=== PATIENT | female | born 1965 | race African-American/Black ===

== ENCOUNTER 2017-07-22 16:52 | Emergency (ER) | payer OTHER ==
[~2017-07-22] VITALS: Ht 175.3 cm; Wt 72.5 kg
[2017-07-22 16:57] VITALS: Ht 175.3 cm; Wt 72.5 kg
[2017-07-22] MEDS ORDERED: IOHEXOL 100 ML ONE (20:57)
[2017-07-22] MEDS ORDERED: SOD CHLORIDE 0.9% 100 ML ONE (20:57)
[2017-07-22] MEDS ORDERED: LORAZEPAM 2 MG INJ IV ONE (21:00)
[2017-07-22 21:39] LABS: BASOPHILS % 0.4 % (0.0-2.0); EOSINOPHILS # 0.2 10^3/ul (0.0-0.5); EOSINOPHILS % 2.5 % (0.0-7.0); HEMATOCRIT 34.4 % (37.0-47.0); HEMOGLOBIN 11.3 g/dl (12.0-16.0); LYMPHOCYTES # 3.6 10^3/ul (0.8-2.9); LYMPHOCYTES % 47.9 % (15.0-51.0); MEAN CORPUSCULAR HEMOGLOBIN 28.8 pg (29.0-33.0); MEAN CORPUSCULAR HGB CONC 32.8 g/dl (32.0-37.0); MEAN CORPUSCULAR VOLUME 87.8 fl (82.0-101.0); MEAN PLATELET VOLUME 9.9 fl (7.4-10.4); MONOCYTE # 0.5 10^3/ul (0.3-0.9); MONOCYTES % 6.7 % (0.0-11.0); NEUTROPHILS % 42.4 % (39.0-77.0); PLATELET COUNT 380 10^3/UL (140-415); RED BLOOD COUNT 3.92 10^6/ul (4.20-5.40); WHITE BLOOD COUNT 7.6 10^3/ul (4.8-10.8)
[2017-07-22 21:57] LABS: INR 1.03; PARTIAL THROMBOPLASTIN TIME 28.1 Sec (25.0-35.0); PROTIME 13.5 Sec (12.2-14.2); PT RATIO 1.1
[2017-07-22 21:59] LABS: ALANINE AMINOTRANSFERASE 33 IU/L (13-69); ALBUMIN 4.1 g/dl (3.3-4.9); ALBUMIN/GLOBULIN RATIO 1.17; ALKALINE PHOSPHATASE 56 IU/L (42-121); ANION GAP 14 (8-16); ASPARTATE AMINO TRANSFERASE 24 IU/L (15-46); BLOOD UREA NITROGEN 9 mg/dl (7-20); CALCIUM 9.1 mg/dl (8.4-10.2); CARBON DIOXIDE 27 mmol/L (21-31); CHLORIDE 105 mmol/L (97-110); CREATININE 0.74 mg/dl (0.44-1.00); GLUCOSE 102 mg/dl (70-220); POTASSIUM 3.9 mmol/L (3.5-5.1); SODIUM 142 mmol/L (135-144); TOTAL PROTEIN 7.6 g/dl (6.1-8.1)
[2017-07-22 22:12] LABS: TROPONIN-I < 0.012 ng/ml (0.00-0.12)
--- NOTE | 2017-07-22 23:17 | RADRPT ---
PROCEDURE: CT angiogram of the chest with contrast. CLINICAL INDICATION: Chest pain. TECHNIQUE: CT angiogram of the chest was obtained using a multi-detector high-resolution CT. Con tiguous axial images were obtained during the dynamic injection of 90 cc of Omnipaque 350 intravenou s contrast. Coronal and sagittal reformatted images were obtained. 3-D reformatted images were als o obtained. Images were reviewed on a PACS workstation. One or more of the following dose reduction techniques were used: - Automated exposure control. - Adjustment of the mA and/or kV according to patient size. - Use of iterative reconstruction technique. Exam CTD/vol = 7.00 mGy. Total exam DLP = 275.19 mGy-cm. COMPARISON: None. FINDINGS: The main pulmonary artery followed to the segmental divisions are well opacified. There is no filli ng defect or evidence of pulmonary embolism. The heart is normal in size. There is no pericardial thickening or effusion. The aorta is of normal course and caliber without evidence of aneurysm or d issection. Bilateral breast implants are present. The visualized thyroid is unremarkable. There are no enlarg ed axillary lymph nodes. There are no enlarged mediastinal or hilar lymph nodes by CT criteria. Th ere is no parenchymal nodule or consolidation. There is no pleural effusion. The central tracheobr onchial tree is within normal limits. Limited evaluation of the upper abdomen is unremarkable. IMPRESSION: No evidence of pulmonary embolism or aortic dissection. .Yohannes Hu MD, Date Time Electronically viewed and signed by .Yohannes Hu MD, MD on 07/22/2017 23:17 .T/
[2017-07-23 00:47] VITALS: BP 110/79; PULSE 88; RESP 20; TEMP 98
--- NOTE | 2017-07-24 17:39 | ERD ---
ER Documentation Chief Complaint Date/Time DATE: 07/22/17 TIME: 20:28 Chief Complaint HEART PALPATIONS, REPORTS TAKING TAMOXIFEN POSS CAUSE HPI 52 year old female with a history of breast CA s/p chemo and mastectomy in remission with recent history of STEPHEN 10 days ago presenting with palpitations and difficulty breathing. She has had these symptoms since yesterday intermittently. She states it started after she took her ativan, norco, and tamoxifen all together. She has been on Tamoxifen for 2 years and has never mcduffie da reaction like this, but think the medication may be the cause. She denies any specific chest pain or leg pain. She feels very anxious as well. No recent cough, fevers, chills. No history of venous thrombosis. I spoke with her [facility], who states the hysterectomy was done for fibroids, not cancer and the removed tissue pathology was benign. ROS All systems reviewed and are negative except as per history of present illness. PMhx/Soc History of Surgery: Yes (HYSTERECTOMY; [facility] MASTECTOMY) Anesthesia Reaction: No Hx Neurological Disorder: Yes Hx Respiratory Disorders: Yes (SOB SINCE SX.) Hx Cardiac Disorders: No Hx Psychiatric Problems: Yes (CURRENTLY ANXIOUS) Hx Miscellaneous Medical Probl: Yes (HX OF BREAST CA.) Hx Alcohol Use: No Hx Substance Use: No Hx Tobacco Use: No Smoking Status: Never smoker FmHx Family History: No coronary disease, No diabetes Physical Exam Vitals Vital Signs Date Time Temp Pulse Resp B/P Pulse Ox O2 Delivery O2 Flow Rate FiO2 07/23/17 00:47 98.0 88 20 110/79 97 Room Air 07/22/17 23:00 98.3 98 20 113/88 97 Room Air 07/22/17 21:23 Nasal Cannula 2 07/22/17 21:21 98.6 100 20 106/79 95 Room Air 07/22/17 16:57 98.7 102 20 132/64 99 Physical Exam Const: appears anxious, speaking in short sentences, non toxic Head: Atraumatic Eyes: Normal Conjunctiva ENT: Normal External Ears, Nose and Mouth. Neck: Full range of motion..~ No meningismus. Resp: Clear to auscultation bilaterally Cardio: Regular rate and rhythm, no murmurs. 2+ distal pulses Abd: Soft, non tender, non distended. Normal bowel sounds Skin: No petechiae or rashes Back: No midline or flank tenderness Ext: No cyanosis, or edema. No calf swelling or tenderness, negative homans sign Neur: Awake and alert Psych: Normal Mood and Affect Result Diagram: 07/22/17202007/22/172020 Results 24 hrs Laboratory Tests Test 07/22/17 20:21 White Blood Count 7.610^3/ul Red Blood Count 3.9210^6/ul Hemoglobin 11.3g/dl Hematocrit 34.4% Mean Corpuscular Volume 87.8fl Mean Corpuscular Hemoglobin 28.8pg Mean Corpuscular Hemoglobin Concent 32.8g/dl Red Cell Distribution Width 14.0% Platelet Count 99750^3/UL Mean Platelet Volume 9.9fl Neutrophils % 42.4% Lymphocytes % 47.9% Monocytes % 6.7% Eosinophils % 2.5% Basophils % 0.4% Nucleated Red Blood Cells % 0.0/100WBC Neutrophils # (Manual) 3.210^3/ul Lymphocytes # 3.610^3/ul Monocytes # 0.510^3/ul Eosinophils # 0.210^3/ul Basophils # 0.010^3/ul Nucleated Red Blood Cells # 0.010^3/ul Prothrombin Time 13.5Sec Prothrombin Time Ratio 1.1 INR International Normalized Ratio 1.03 Activated Partial Thromboplast Time 28.1Sec Sodium Level 142mmol/L Potassium Level 3.9mmol/L Chloride Level 105mmol/L Carbon Dioxide Level 27mmol/L Anion Gap 14 Blood Urea Nitrogen 9mg/dl Creatinine 0.74mg/dl Glucose Level 102mg/dl Calcium Level 9.1mg/dl Total Bilirubin 0.0mg/dl Direct Bilirubin 0.00mg/dl Indirect Bilirubin 0.0mg/dl Aspartate Amino Transf (AST/SGOT) 24IU/L Alanine Aminotransferase (ALT/SGPT) 33IU/L Alkaline Phosphatase 56IU/L Troponin I < 0.012ng/ml Total Protein 7.6g/dl Albumin 4.1g/dl Globulin 3.50g/dl Albumin/Globulin Ratio 1.17 Current Medications Medications (Trade) Dose Ordered Sig/[place] Route PRN Reason Start Time Stop Time Status Last Admin Dose Admin Lorazepam (Ativan) 1 mg ONCE ONCE IV 07/22/17 21:00 07/22/17 21:01 DC 07/22/17 21:26 IV Flush 10 ml 10 ml STK-MED ONCE .ROUTE 07/22/17 20:57 07/22/17 20:58 DC 07/22/17 20:57 Sodium Chloride 100 ml @ ud STK-MED ONCE .ROUTE 07/22/17 20:57 07/22/17 20:58 DC 07/22/17 20:57 Iohexol (Omnipaque) 100 ml @ ud STK-MED ONCE .ROUTE 07/22/17 20:57 07/22/17 20:58 DC 07/22/17 20:57 Procedures/MDM EKG#1 : ST 104 Normal intervals, no acute ischemic changes EKG #2: NSR Normal intervals, no acute ischemic changes Labs: CBC mild anemia CMP normal Trop normal Coags normal Imaging: CTPA shows no evidence of dissection, PE or other acute abnormality MDM Patient is presenting with shortness of breath and palpitations. When she arrived, she was noted to be tachycardic with intermittent dyspnea, but no hypxia. My suspicion for ACS or dissection is low. EKG and telemetry do not show evidence of arrhythmia other than sinus tachycardia. Given her history of recent surgery, I cannot rule out PE .CTPA was doen and was normal. Patient was given Ativan in the meantime with resolution of her symptoms. I reassured the patient that her workup was normal today and the cause of her symptoms is most likely not serious. She was advised to follow up with her oncologist, as I cannot rule out medication reaction. Patient discharged in stable condition with return precautions discussed. Departure Diagnosis: Primary Impression: Palpitations Additional Impression: Dyspnea Dyspnea type: unspecified Qualified Code: R06.00 - Dyspnea, unspecified type Condition: Stable Patient Instructions: Palpitations Referrals: NO PRIMARY,CARE PHYSICIAN (PCP) Additional Instructions: Follow up with your primary care doctor on Monday. Return to the ER for worsening symptoms LAUREL BUCK MD Jul 24, 2017 17:38
== END 2017-07-23 01:04 | disposition home or self-care (01) ==
LOC: E/R 16:52
DX: R00.2 Palpitations (principal); R06.00 Dyspnea, unspecified; R07.9 Chest pain, unspecified; Z85.3 Personal history of malignant neoplasm of breast
CPT/HCPCS: 36415; 71275; 80053; 84484; 85025; 85610; 85730; 93005; 96374; 99285; J2060; Q9967

== ENCOUNTER 2019-02-21 21:27 | Emergency (ER) | payer SELFPAY ==
[~2019-02-21] VITALS: Ht 170.2 cm; Wt 86.0 kg
[2019-02-21 21:33] VITALS: BP 162/91; PULSE 83; RESP 16; Ht 170.2 cm; Wt 86.0 kg
== END 2019-02-21 21:40 | disposition left against medical advice (07) ==
LOC: E/R 21:27
DX: Z53.21 Procedure and treatment not carried out due to patient leaving prior to being seen by health care provider (principal)